=== PATIENT | male | born 1930 | race Caucasian/White ===

== ENCOUNTER 2017-02-20 02:28 | Day surgery (SDCO) | payer MEDICARE, OTHER ==
[~2017-02-20 02:28] MED LIST: ASPIRIN325 M1 PO; CALCIUM 500 +1 EACH PO; CERTAGEN1 EACH PO; COD LIVER OIL1 EACH PO; COREG 3.125M3.125 MG PO; CRESTOR5 MG PO; DUONEB 2.5-0.5M1 AMP NEB; HYDRALAZINE25 MG PO; MUCINEX 600MG600 MG PO; NEXIUM40 MG PO; PERFOROMIS20 MCG/2 M NEB; PULMICORT0.5 MG/2 M NEB; VENTOLIN HFA IN18 GM INH; VITAMIN E400 UNIT PO
[2017-02-20 03:13] LABS: INR 0.96 (0.9-1.2); PROTHROMBIN TIME 12.4 SECONDS (11.7-14.0)
[2017-02-20 03:22] LABS: BASOPHIL 0.2 % (0-2); EOSINOPHIL 0.8 % (0-7); HCT 41.7 % (42.0-52.0); HGB 13.2 g/dl (13.2-18.0); LYMPHOCYTE 17.1 % (15-48); MCHC 31.7 g/dL (32.0-36.0); MCV 91.6 fL (78.0-100.0); MONOCYTE 7.5 % (0-12); MPV 9.9 fL (6.0-9.5); NEUTROPHIL 74.4 % (41-80); PLT 187 K/uL (150-400); RBC 4.55 M/uL (4.70-6.00); RDW 14.4 % (11.5-14.0); WBC 8.9 K/uL (4.0-10.5)
[2017-02-20 03:27] LABS: CKMB 1.44 ng/mL (0.97-4.94); MYOGLOBIN 38 ng/mL (26-65); TROPONIN T < 0.010 ng/mL
[2017-02-20 03:28] LABS: ALBUMIN 4.3 g/dL (3.4-4.8); BILIRUBIN - TOTAL 0.2 mg/dL (0.1-1.0); CREATININE 1.4 mg/dL (0.7-1.2); GLOBULIN (CALCULATION) 2.7 g/dL (2.2-4.2); MAGNESIUM 2.05 mg/dL (1.40-2.10); POTASSIUM 4.8 mmol/L (3.5-5.1)
[2017-02-20 03:31] LABS: PRO-BNP 1560 pg/mL (0-450)
[2017-02-20 09:39] LABS: BASOPHIL 0.2 % (0-2); EOSINOPHIL 0.8 % (0-7); HCT 38.8 % (42.0-52.0); HGB 12.5 g/dl (13.2-18.0); LYMPHOCYTE 22.1 % (15-48); MCH 29.4 pg (25.0-31.0); MCHC 32.2 g/dL (32.0-36.0); MCV 91.3 fL (78.0-100.0); MONOCYTE 8.3 % (0-12); MPV 9.9 fL (6.0-9.5); NEUTROPHIL 68.6 % (41-80); PLT 155 K/uL (150-400); RBC 4.25 M/uL (4.70-6.00); RDW 14.1 % (11.5-14.0); WBC 6.6 K/uL (4.0-10.5)
[2017-02-20 10:05] LABS: CKMB 1.76 ng/mL (0.97-4.94); CREATININE 1.2 mg/dL (0.7-1.2); POTASSIUM 4.8 mmol/L (3.5-5.1); TROPONIN T < 0.010 ng/mL
[2017-02-20 15:50] LABS: CKMB 1.74 ng/mL (0.97-4.94); TROPONIN T < 0.010 ng/mL
[2017-02-21] MEDS ORDERED: COREG 6.25MG6.25 MG PO (11:42)
[2017-02-21] MEDS ORDERED: ISOSORBIDE MONO60 MG PO (11:43)
[2017-02-21] MEDS ORDERED: NITROSTAT0.4 MG SL (11:44)
== END 2017-02-21 09:27 | disposition home or self-care (01) ==
LOC: FER 02:28 → FTCU 04:10
PROVIDERS: Emergency Medicine Emergency Medical Services; Hospitalist; ADMIT Internal Medicine
DX: R07.9 Chest pain, unspecified (principal); J44.9 Chronic obstructive pulmonary disease, unspecified; Z99.81 Dependence on supplemental oxygen; I25.10 Atherosclerotic heart disease of native coronary artery without angina pectoris; I10 Essential (primary) hypertension; E78.5 Hyperlipidemia, unspecified; I25.5 Ischemic cardiomyopathy; K21.9 Gastro-esophageal reflux disease without esophagitis; G47.33 Obstructive sleep apnea (adult) (pediatric); Z95.1 Presence of aortocoronary bypass graft; Z91.09 Other allergy status, other than to drugs and biological substances; Z88.7 Allergy status to serum and vaccine; Z87.891 Personal history of nicotine dependence; Z82.49 Family history of ischemic heart disease and other diseases of the circulatory system; Z79.82 Long term (current) use of aspirin; Z79.899 Other long term (current) drug therapy; Z90.49 Acquired absence of other specified parts of digestive tract; Z98.49 Cataract extraction status, unspecified eye
CPT/HCPCS: 36415; 71010; 80048; 80053; 80061; 82550; 82553; 83735; 83874; 83880; 84484; 85025; 85610; 85730; 93005; 94640; 94760; 94762; G0378